=== PATIENT | female | born 1975 | race Caucasian/White ===

== ENCOUNTER 2018-03-09 05:52 | Day surgery (SDC) | payer OTHER ==
[2018-03-09] MEDS ORDERED: FENTAnyl 50 MCG/ML VIAL (07:55)
[2018-03-09] MEDS ORDERED: MIDAZOLAM 1 MG/ML 2 ML INJ (07:55)
== END 2018-03-09 13:46 | disposition home or self-care (01) ==
LOC: GIL 05:52
DX: K21.9 Gastro-esophageal reflux disease without esophagitis (principal); K29.60 Other gastritis without bleeding
CPT/HCPCS: 43239; 88305; 88312